=== PATIENT | male | born 1985 | race Two or more races ===

== ENCOUNTER 2017-07-11 23:45 | Emergency (ER) | payer SELFPAY ==
[~2017-07-11] VITALS: Ht 193 cm; Wt 93.0 kg
[2017-07-12 00:02] VITALS: BP 137/82
--- NOTE | 2017-07-12 00:28 | NUR ---
PT TAKEN TO XRAY FROM THE LOBBY
--- NOTE | 2017-07-12 00:36 | NUR ---
PT TAKEN TO BED 4
--- NOTE | 2017-07-12 00:42 | NUR ---
31Y M BIB SELF C/O RIGHT HAND PAIN X 2 HOURS PT STATES HE PUNCHED A WALL WHILE AT HOME. PT DENIES ANY LOSS OF SENSATION TO RIGHT FINGERS. PT DENIES ANY N/V/D, SOB, CP AT THE MOMENT.
--- NOTE | 2017-07-12 00:46 | NUR ---
Dr. Londono evaluating patient at bedside.
[2017-07-12] MEDS ORDERED: MORPHINE SULFATE 4 MG/ML SYR IVP ONE ×2 (01:40→03:20)
[2017-07-12] MEDS ORDERED: LORazepam 2 MG/ML VIAL IVP ONE (01:40)
[2017-07-12] MEDS ORDERED: MIDAZOLAM 2 MG/2 ML VIAL ONE (03:13)
[2017-07-12] MEDS ORDERED: NACL 0.9% 1,000 ML IV ONE (03:20)
[2017-07-12] MEDS ORDERED: MIDAZOLAM 2 MG/2 ML VIAL IM ONE (03:20)
--- NOTE | 2017-07-12 03:29 | NUR ---
X-Ray at bedside.
--- NOTE | 2017-07-12 04:52 | NUR ---
SEE SEDATION WORKSHEET FOR CONTINUOUS VITAL CHARTING.
--- NOTE | 2017-07-12 04:54 | NUR ---
IV removed, catheter intact and site benign. Applied folded 4x4 gauze and tape to stop bleeding.
[2017-07-12 06:17] VITALS: BP 139/82
--- NOTE | 2017-07-12 06:17 | NUR ---
Patient discharged with v/s stable. Written and verbal after care instructions given and explained. Patient alert, oriented and verbalized understanding of instructions. Ambulatory with steady gait. All questions addressed prior to discharge. ID band removed. Patient advised to follow up with PMD. Rx of NAPROXEN 500MG given. Patient educated on indication of medication including possible reaction and side effects. Opportunity to ask questions provided and answered.
== END 2017-07-12 06:17 | disposition home or self-care (01) ==
LOC: MED 23:45
DX: S63.064A Dislocation of metacarpal (bone), proximal end of right hand, initial encounter (principal); W22.01XA Walked into wall, initial encounter; Y93.89 Activity, other specified; Y92.89 Other specified places as the place of occurrence of the external cause; Y99.8 Other external cause status
CPT/HCPCS: 26670; 73130; 96361; 96374; 99285; J2060; J2250; J2270; Q0092; 96375; 96376; 99284

== ENCOUNTER 2019-07-30 15:37 | Emergency (ER) | payer OTHER ==
[~2019-07-30] VITALS: Ht 193 cm; Wt 90.3 kg
[2019-07-30 15:44] VITALS: BP 106/71
--- NOTE | 2019-07-30 16:35 | NUR ---
PT BIB SELF FOR RT SIDE CHEST PAIN STARTING EARLIER TODAY NON PROVOKED. PT IN RR DISTRESS, SKIN WARM AND DRY. BL BS CLEAR THROUGHOUT. PT SITTING IN CHAIR, VSS.
[2019-07-30 16:41] LABS: BASOPHILS % (AUTO) 0.5 % (0.0-2.0); HEMATOCRIT 42.7 % (36-52); HEMOGLOBIN 14.6 g/dL (12.0-18.0); LYMPHOCYTES # (AUTO) 1.1 K/uL (2.0-11.5); LYMPHOCYTES % (AUTO) 22.4 % (20.5-51.1); MEAN CORPUSCULAR HEMOGLOBIN 30 pg (27-31); MEAN CORPUSCULAR HGB CONC 34 g/dL (33-37); MEAN CORPUSCULAR VOLUME 86.8 fL (80-94); MONOCYTES # (AUTO) 0.6 K/uL (0.8-1.0); NEUTROPHILS # (AUTO) 3.1 K/uL (1.8-7.7); NEUTROPHILS % (AUTO) 63.1 % (42.2-75.2); PLATELET COUNT (AUTO) 233 K/uL (140-450); RED BLOOD CELL COUNT(AUTO) 4.92 MIL/uL (4.20-6.10); RED CELL DISTRIBUTION WIDTH 12.7 % (11.6-13.7); WHITE BLOOD COUNT (AUTO) 4.9 K/uL (4.8-10.8)
[2019-07-30 16:52] LABS: ANION GAP 11.5 (8-16); CARBON DIOXIDE 28.7 mmol/L (21-32); CREATININE 1.2 mg/dL (0.7-1.3); POTASSIUM 4.2 mmol/L (3.5-5.1)
[2019-07-30 16:55] LABS: PROTHROMBIN TIME 10.4 secs (10.8-13.4)
[2019-07-30 16:58] LABS: ALBUMIN 3.8 g/dL (3.4-5.0); TOTAL BILIRUBIN 0.7 mg/dL (0.0-1.0)
[2019-07-30 17:24] VITALS: BP 110/65
== END 2019-07-30 17:24 | disposition home or self-care (01) ==
LOC: MED 15:37
DX: R07.89 Other chest pain (principal); I10 Essential (primary) hypertension
CPT/HCPCS: 36415; 71045; 80053; 83880; 84484; 85025; 85610; 85730; 93005; 99284